=== PATIENT | male | born 1940 | race Caucasian/White ===

== ENCOUNTER 2016-08-10 21:47 | Inpatient (IN) ==
--- NOTE | 2016-08-10 22:16 | Emergency Department Note ---
Disposition Clinical Impression: Pneumonia Qualifiers: Pneumonia type: due to unspecified organism Laterality: unspecified laterality Lung location: unspecified part of lung Qualified Code(s): J18.9 - Pneumonia, unspecified organism Disposition: Admitted As Inpatient Condition: Good SOB HPI - General Chief Complaint: ED Shortness of Breath/Dyspnea Stated Complaint: ED Time Seen by Provider: 08/10/16 22:10 Source: patient Limitations: no limitations Nursing Notes Reviewed: Yes Vital Signs Reviewed: Yes - History of Present Illness Patient here for development of shortness of breath and cough that started earlier today. At home temperature of 102. Patient's temperature here of 100.9. Patient states he has had cough is nonproductive in nature. Patient has diffuse wheezing throughout. Patient has a history of COPD, CHF, coronary artery disease. Patient has been using albuterol home with increasing frequency. - Related Data Allergies Allergy/AdvReac Type Severity Reaction Status Date / Time levofloxacin AdvReac Itching Verified 08/10/16 23:51 Review of Systems: CONSTITUTIONAL: Fever No weight loss, weakness or fatigue. HEENT: Eyes: No visual changes. Ears, Nose, Throat: No hearing loss, difficulty talking or unable to swallow. SKIN: No rash or itching. CARDIOVASCULAR: No chest pain, chest pressure or chest discomfort. No palpitations or edema. RESPIRATORY: Shortness of breath cough but no sputum production. GASTROINTESTINAL: No anorexia, nausea, vomiting or diarrhea. No abdominal pain or blood. GENITOURINARY: No burning on urination or hematuria. NEUROLOGICAL: No headache, dizziness, syncope, paralysis, ataxia, numbness or tingling in the extremities. No change in bowel or bladder control. MUSCULOSKELETAL: No muscle pain, back pain, joint pain or stiffness. Past Medical History - Past Medical History Medical history: Reports: CHF, COPD, hyperlipidemia, hypertension, myocardial infarction Psychiatric history: Reports: no psych history - Social History Smoking Status: Former smoker Smokeless Tobacco Status: No Alcohol use: Reports: none Drug use: Reports: none Physical Exam General appearance: NAD, conversant Eyes: anicteric sclerae, moist conjunctivae; PERRL HENT: Atraumatic; oropharynx clear with moist mucous membranes and no mucosal ulcerations Neck: Normal inspection; Trachea midline; FROM, supple Lungs: Diffuse wheezing throughout CV: RRR, no MRGs Abdomen: Soft, non-tender; no rebound or gaurding Extremities: No peripheral edema or extremity lymphadenopathy Skin: Normal temperature; no rash, ulcers or lesions Psych: Appropriate mood and affect Neuro: alert and oriented to person, place and time - General Limitations: no limitations General appearance: alert Course - Reevaluation(s) Reevaluation #1: Patient with mild improvement after duo nebs. Patient has a fever as well as concern for radiographic pneumonia. Blood cultures will be obtained and Levaquin will be started. Patient will be admitted to the hospital service. Patient has allergies to Levaquin. Patient given ceftriaxone and azithromycin instead. - Consultations Consultation #1: Discussed with Dr. Clarke. Pt needs lactate and fluids due to sepsis criteria. Limited fluids will be given due to CHF history. Vital Signs Temperature 100.9 F H 08/10/16 21:51 Pulse Rate 98 08/10/16 21:51 Respiratory Rate 16 08/10/16 21:51 Blood Pressure 150/77 08/10/16 21:51 O2 Sat by Pulse Oximetry 90 08/10/16 21:51 Temperature 100.9 F H 08/10/16 21:51 Pulse Rate 98 08/10/16 21:51 Respiratory Rate 24 08/10/16 22:29 Blood Pressure 150/77 08/10/16 21:51 O2 Sat by Pulse Oximetry 98 08/10/16 22:34 Oxygen Delivery Oxygen Delivery Room Air Shortness of Breath/Dyspnea - Medical Records Medical records reviewed: Yes I reviewed the patient's medical records. - Lab Data Lab results reviewed: Yes I reviewed the patient's lab results. Result diagrams: 08/10/16 22:23 08/10/16 22:23 Lab Results 08/10/16 08/10/16 08/10/16 Range/Units 22:23 22:23 22:23 WBC 14.7 H (4.3-11.1) K/mcL RBC 4.02 L (4.19-5.50) M/mcL Hgb 11.4 L (12.9-16.9) g/dL Hct 35.8 L (37.5-50.1) % MCV 89.1 (83.0-100.0) fL MCH 28.4 (28.0-33.3) pg MCHC 31.8 (31.6-35.5) g/dL RDW 19.5 H (11.5-14.5) % Plt Count 197 (140-400) K/mcL MPV 9.6 (9.4-12.4) fL Immature Gran % 0.5 (0-4) % Seg Neutrophils % 75.4 % Lymphocytes % 9.0 % Monocytes % 7.2 % Eosinophils % 7.6 % Basophils % 0.3 % Neutrophils # 11.1 H (1.6-8.9) K/mcL Lymphocytes # 1.3 (0.6-4.6) K/mcL Monocytes # 1.1 (0.0-1.3) K/mcL Eosinophils # 1.1 H (0.0-0.6) K/mcL Basophils # 0.1 (0.0-0.2) K/mcL PT 13.0 H (9.4-12.1) Seconds INR 1.2 Sodium 137 (136-145) mEq/L Potassium 4.3 (3.5-4.5) mEq/L Chloride 103 (98-109) mEq/L Carbon Dioxide 25 (19-29) mEq/L BUN 28 H (8-26) mg/dL Creatinine 1.26 H (0.72-1.25) mg/dL Est GFR ( Amer) > 60 (> 60) Est GFR (Non-Af Amer) 56 L (> 60) BUN/Creatinine Ratio 22 (6-26) Glucose 134 H (70-99) mg/dL Calculated Osmolality 291 (280-300) Calcium 9.6 (8.6-10.8) mg/dL Troponin I (0-0.03) ng/mL B-Natriuretic Peptide (0-100) pg/mL 08/10/16 08/10/16 Range/Units 22:23 22:23 WBC (4.3-11.1) K/mcL RBC (4.19-5.50) M/mcL Hgb (12.9-16.9) g/dL Hct (37.5-50.1) % MCV (83.0-100.0) fL MCH (28.0-33.3) pg MCHC (31.6-35.5) g/dL RDW (11.5-14.5) % Plt Count (140-400) K/mcL MPV (9.4-12.4) fL Immature Gran % (0-4) % Seg Neutrophils % % Lymphocytes % % Monocytes % % Eosinophils % % Basophils % % Neutrophils # (1.6-8.9) K/mcL Lymphocytes # (0.6-4.6) K/mcL Monocytes # (0.0-1.3) K/mcL Eosinophils # (0.0-0.6) K/mcL Basophils # (0.0-0.2) K/mcL PT (9.4-12.1) Seconds INR Sodium (136-145) mEq/L Potassium (3.5-4.5) mEq/L Chloride (98-109) mEq/L Carbon Dioxide (19-29) mEq/L BUN (8-26) mg/dL Creatinine (0.72-1.25) mg/dL Est GFR ( Amer) (> 60) Est GFR (Non-Af Amer) (> 60) BUN/Creatinine Ratio (6-26) Glucose (70-99) mg/dL Calculated Osmolality (280-300) Calcium (8.6-10.8) mg/dL Troponin I 0.01 (0-0.03) ng/mL B-Natriuretic Peptide 78 (0-100) pg/mL - Radiology Data Radiology results reviewed: Yes I reviewed the patient's radiology results. - EKG Data EKG attestation: Yes I reviewed and interpreted this EKG. EKG results narrative: EKG shows sinus rhythm with ventricular rate of 92. RI interval 173. QRS 89. QTC 363. No significant ST elevations or depressions. Attestation Statement - Attestation Attestation: I, Iban Davis MD, personally evaluated this patient and discussed their management with the resident physician. I reviewed the resident's note and agree with the documented findings, medical decision making, and plan of care. 76-year-old male presents to the emergency department with a complaint of acute increased shortness of breath which started about 6 PM this evening. Some pleuritic left lower chest pain with coughing or deep breathing. No increased cough. No sputum production. He did have a fever which just started this evening. reports at home his temperature was 102.2 just prior to coming to the emergency department. He does have home oxygen which she uses as needed. He used the oxygen at home tonight but it did not seem to be helping. On examination patient is a well-developed well-nourished elderly male in no acute distress. He is alert and oriented 3. There is no cyanosis or diaphoresis. Breath sounds are decreased bilaterally with diffuse bilateral expiratory wheezes. Heart regular rate and rhythm. Abdomen soft and nontender with normal bowel sounds. Labs reviewed. Chest x-ray shows a right lower lobe consolidation. EKG shows normal sinus rhythm with no acute changes. The hospitalist, Dr. Waddell, was consulted and accepted admission of the patient.
[2016-08-10] MEDS ORDERED: methylPREDNISolone 125 MG/2 ML VIAL IVP ONE (22:19)
[2016-08-10] MEDS ORDERED: Ipratropium/Albuterol Neb 3 ML IH ONE (22:19)
[2016-08-10 22:30] LABS: Basophils # 0.1 K/mcL (0.0-0.2); Basophils % 0.3 %; Eosinophils # 1.1 K/mcL (0.0-0.6); Eosinophils % 7.6 %; Hematocrit 35.8 % (37.5-50.1); Hemoglobin 11.4 g/dL (12.9-16.9); Immature Granulocytes % 0.5 % (0-4); Lymphocytes # 1.3 K/mcL (0.6-4.6); Mean Corpuscular HGB Conc 31.8 g/dL (31.6-35.5); Mean Corpuscular Hemoglobin 28.4 pg (28.0-33.3); Mean Corpuscular Volume 89.1 fL (83.0-100.0); Mean Platelet Volume 9.6 fL (9.4-12.4); Monocytes # 1.1 K/mcL (0.0-1.3); Monocytes % 7.2 %; Neutrophils # 11.1 K/mcL (1.6-8.9); Platelet Count 197 K/mcL (140-400); Red Blood Count 4.02 M/mcL (4.19-5.50); Red Cell Distribution Width 19.5 % (11.5-14.5); Segmented Neutrophils % 75.4 %
[2016-08-10 22:35] LABS: INR 1.2
[2016-08-10 22:42] LABS: BUN/Creatinine Ratio 22 (6-26); Blood Urea Nitrogen 28 mg/dL (8-26); Calcium 9.6 mg/dL (8.6-10.8); Carbon Dioxide 25 mEq/L (19-29); Chloride 103 mEq/L (98-109); Glucose 134 mg/dL (70-99); Osmolality,Calculated 291 (280-300); Potassium 4.3 mEq/L (3.5-4.5); Sodium 137 mEq/L (136-145); eGFR For African Americans > 60 (> 60); eGFR For Non-African Americans 56 (> 60)
[2016-08-10] MEDS ORDERED: Levofloxacin 750 MG/150 ML 750 MG/150 ML BAG IVPB ONE (23:34)
[2016-08-10] MEDS ORDERED: 0.9 % Sodium Chloride 500 ML IVC ONE (23:38)
[2016-08-10] MEDS ORDERED: Azithromycin 500 MG in D5% in Water 250 ML IVPB ONE (23:52)
--- NOTE | 2016-08-11 04:37 | Internal Med History&Physical ---
Date of Encounter: 08/11/16 Time of Encounter: 04:37 Assessment and Plan (1) Pneumonia Current visit: Yes Status: Acute Treat for community acquired pneumonia - with ceftriaxone and azithromycin. Qualifiers: Pneumonia type: due to unspecified organism Laterality: right Lung location: lower lobe of lung Qualified Code(s): J18.1 - Lobar pneumonia, unspecified organism (2) Sepsis Current visit: Yes Status: Acute Due to pneumonia. Treat with antibiotics and IV fluids. Qualifiers: Sepsis type: sepsis due to unspecified organism Qualified Code(s): A41.9 - Sepsis, unspecified organism (3) COPD exacerbation Current visit: Yes Status: Acute Treat with bronchodilators and prednisone. (4) CAD (coronary artery disease) Current visit: Yes Status: Acute Continue home medications Qualifiers: Coronary Disease-Associated Artery/Lesion type: [place] artery [place] vs. transplanted heart: [place] heart Associated angina: without angina Qualified Code(s): I25.10 - Atherosclerotic heart disease of [place] coronary artery without angina pectoris (5) BPH (benign prostatic hyperplasia) Current visit: Yes Status: Acute Continue flomax Qualifiers: Prostatic enlargement morphology: unspecified morphology Lower urinary tract symptom presence: presence of symptoms unspecified Qualified Code(s): N40.0 - Benign prostatic hyperplasia without lower urinary tract symptoms Internal Medicine - H&P: HPI Chief complaint: Shortness of breath Admitted From: Emergency Dept Plans for Post Hospital Care: Home History of present illness: Mr. Kan is a 76 year old male With h/o CHF, COPD, CAD, hypertension, Presents with shortness of breath and cough since yesterday. Cough is non productive. Pt reports wheezing. Reports fever (temp: 102 F at home) and chills. Pt denies chest pain, nausea, vomiting, abdominal pain, dysuria, hematuria, changes in bowel habits. He was evaluated in the ER and was thought to have RLL pneumonia and was given ceftriaxone and azithromycin; was given solu -medrol and duonebs. He is admitted to the hospitalist service for further management. Past Med Surg Social Fam HX - Past Medical History Medical history: CHF, COPD, hyperlipidemia, hypertension, myocardial infarction Psychiatric history: no psych history - Social History Smoking Status: Former smoker Smokeless Tobacco Status: No Alcohol use: none Drug use: none - Additional Family History Additional family history: Family history reviewed and is noncontributory to current admission Internal Medicine - H&P: Meds Acetaminophen [Tylenol] 650 mg PO QAM PRN 08/11/16 [History] Albuterol Neb [Proventil Neb] 2.5 mg IH Q12H 08/11/16 [History] Albuterol Sulfate [Albuterol Inhaler] 2 puff IH Q6HR PRN 08/11/16 [History] Aspirin [Lo-Dose Aspirin EC] 81 mg PO DAILY 08/11/16 [History] Atorvastatin [Lipitor] 40 mg PO HS 08/11/16 [History] Budesonide/Formoterol 160/4.5 [Symbicort 160/4.5] 2 puff IH BIDR 08/11/16 [ History] Cholecalciferol (D-3) [Vitamin D] 1,000 unit PO DAILY 08/11/16 [History] Isosorbide MONOnitrate (24 HR) [Imdur] 30 mg PO DAILY 08/11/16 [History] Metoprolol Tartrate [Lopressor] 50 mg PO BID 08/11/16 [History] Montelukast [Singulair] 10 mg PO DAILY 08/11/16 [History] Nitroglycerin [Nitrostat] 0.4 mg SL AD PRN 08/11/16 [History] Omeprazole [PriLOSEC] 20 mg PO DAILY 08/11/16 [History] Oxygen 2 l NS HS 08/11/16 [History] Ranolazine [Ranexa] 500 mg PO BID 08/11/16 [History] Tamsulosin [Flomax] 0.4 mg PO DAILY 08/11/16 [History] Tiotropium [Spiriva] 1 cap IH DAILY 08/11/16 [History] Vit C/E/Zn/Coppr/Lutein/Zeaxan [Preservision Areds 2 Softgel] 1 cap PO DAILY [History] Zinc Acetate [Galzin] 50 mg PO DAILY 08/11/16 [History] Allergies levofloxacin Adverse Reaction (Verified 08/10/16 23:51) Itching All Systems PM: A 10-system review of systems was performed and is negative for pertinent findings except as documented above in the HPI. - Constitutional Vitals: Temp Pulse Resp BP Pulse Ox 100.9 F H 88 20 138/70 93 08/10/16 21:51 08/11/16 01:10 08/11/16 01:10 08/11/16 01:10 08/11/16 01:10 Exam: General: Not in acute distress at the time of my evaluation HEENT: Oral mucosa is moist. No conjunctival palor or scleral icterus Neck: No obvious neck swellings Lungs: B/L occasional wheeze present Cardiac: Regular rate and rhythm. No significant murmurs Abdomen: Soft, non tender. Bowel sounds present Genitourinary: No ford catheter Neurological: Alert and oriented. No gross localizing deficits Psych: Not aggressive or agitated Extremities: no significant leg edema Skin: No generalized rash Internal Med - H&P Results - Labs CBC & Chem 7: 08/11/16 05:03 08/11/16 06:34 - EKG Data -: EKG Interpreted by Myself EKG shows normal: sinus rhythm Rate: normal - Impressions ITS Impressions Chest X-Ray 08/10/16 22:19 IMPRESSION: Mild diffuse interstitial prominence, which is nonspecific and may represent COPD. Minimal right basilar opacities, favor atelectasis over consolidation. Otherwise no acute findings. D/ / Bean Ledbetter MD / Bean Ledbetter MD Interpreting Provider: Bean Ledbetter MD
[2016-08-11] MEDS ORDERED: Acetaminophen 325 MG TABLET PO PRN (04:39)
[2016-08-11] MEDS ORDERED: Naloxone 0.4 MG/ML INJ IVP PRN (04:39)
[2016-08-11] MEDS ORDERED: Albuterol 2.5 MG/3 ML NEBULIZER IH PRN (04:52)
[2016-08-11 05:13] LABS: Basophils % 0.1 %; Eosinophils % 0.1 %; Hematocrit 35.7 % (37.5-50.1); Hemoglobin 11.4 g/dL (12.9-16.9); Immature Granulocytes % 0.6 % (0-4); Lymphocytes # 0.7 K/mcL (0.6-4.6); Lymphocytes % 4.7 %; Mean Corpuscular HGB Conc 31.9 g/dL (31.6-35.5); Mean Corpuscular Hemoglobin 28.6 pg (28.0-33.3); Mean Corpuscular Volume 89.7 fL (83.0-100.0); Monocytes # 0.4 K/mcL (0.0-1.3); Monocytes % 2.5 %; Neutrophils # 14.4 K/mcL (1.6-8.9); Platelet Count 177 K/mcL (140-400); Red Blood Count 3.98 M/mcL (4.19-5.50); Red Cell Distribution Width 19.5 % (11.5-14.5)
[2016-08-11 05:30] LABS: Bilirubin,Urine Negative (Negative); Blood,Urine Trace (Negative); Clarity,Urine Clear (Clear); Color,Urine Yellow (Yellow); Glucose,Urine (UA) Normal (Normal); Ketones,Urine Negative (Negative); Leukocyte Esterase,Urine Trace (Negative); Nitrite,Urine Negative (Negative); Protein,Urine Negative (Neg-Trace); Specific Gravity,Urine 1.013 (1.010-1.025); Urobilinogen,Urine Normal (Normal)
[2016-08-11 05:32] LABS: Bacteria,Urine None Seen per hpf (None-Few); Hyaline Casts,Urine None Seen per lpf (None-Few); RBC,Urine 0-3 per hpf (0-3); Squamous Epithelial Cell,Urine Many per lpf (None-Few)
[2016-08-11] MEDS: Ipratropium/Albuterol Neb 3 ML IH SCH ×4 (06:29→22:36)
[2016-08-11 07:00] LABS: BUN/Creatinine Ratio 22 (6-26); Blood Urea Nitrogen 25 mg/dL (8-26); C-Reactive Protein 77 mg/L (Less than 5); Calcium 9.4 mg/dL (8.6-10.8); Carbon Dioxide 22 mEq/L (19-29); Chloride 107 mEq/L (98-109); Glucose 160 mg/dL (70-99); Magnesium 1.9 mg/dL (1.6-2.6); Osmolality,Calculated 296 (280-300); Potassium 4.3 mEq/L (3.5-4.5); Sodium 139 mEq/L (136-145); eGFR For African Americans > 60 (> 60); eGFR For Non-African Americans > 60 (> 60)
[2016-08-11] MEDS ORDERED: predniSONE 10 MG TABLET PO SCH (09:00)
--- NOTE | 2016-08-11 09:48 | Event Note ---
<Gerardo Friedman - Last Filed: 08/11/16 09:42> Date of Encounter: 08/11/16 Time of Encounter: 09:42 Patient seen and examined at bedside. Patient admitted early this morning for shortness of breath and cough as well as fevers and chills. Patient states that he feels slightly better now. Patient reports multiple admissions for pneumonia in the past year, most recently was beginning of June at the [facility]. Physical exam: Afebrile at this time, MAXIMUM TEMPERATURE of 100.9, pulse 79, respiration 16, blood pressure 141/72, pulse oximetry 96% on 2 L. Heart regular rate and rhythm, no murmurs, rubs, gallops. Lungs diminished bilaterally with scattered end expiratory wheezes, faint rhonchi in right lower base Assessment and plan: #1: Healthcare associated pneumonia - patient had recent hospital admission so we will expand his antibiotics to cover for MRSA and Pseudomonas. Patient reports Levaquin allergy but states that it just causes a little bit of itching and he could take it if he needed to. We will cover with vancomycin, Zosyn, ciprofloxacin. #2: Acute exacerbation of COPD - patient has underlying COPD and given his shortness of breath, cough with sputum production we will treat the patient is a COPD exacerbation. Exacerbation likely secondary to pneumonia as discussed above. Antibiotics as above, steroids, scheduled bronchodilators. <Wally Murray - Last Filed: 08/11/16 17:19> Date of Encounter: 08/11/16 I examined this patient and my medical decision-making was reviewed with the GLASS BLOWER/PA/Advanced Practice Nurse/Resident Physician. I agree with the documented findings, disposition and treatment plan as described except to the extent set forth below. need CT abd renal stone protocol records from [facility] about recent cath
[2016-08-11] MEDS ORDERED: Nitroglycerin 0.4 MG TAB.SUBL SL PRN (09:50)
[2016-08-11] MEDS: Lactobacillus 1 EACH CAP.SPRINK PO SCH ×2 (09:51→21:56)
[2016-08-11] MEDS: *HR* Heparin 5,000 UNIT/ML VIAL SQ SCH ×3 (09:51→23:39)
[2016-08-11] MEDS: predniSONE 20 MG TABLET PO SCH (09:52)
[2016-08-11] MEDS: Vancomycin 1,500 MG in D5% in Water 250 ML IVPB SCH ×2 (09:52→21:29)
[2016-08-11] MEDS: Isosorbide MONOnitrate (24 HR) 30 MG TAB.ER.24H PO SCH (10:45)
[2016-08-11] MEDS: Ranolazine 500 MG TAB.ER.12H PO SCH ×2 (10:45→21:28)
[2016-08-11] MEDS: Aspirin Enteric Coated 81 MG Tablet PO SCH (10:45)
[2016-08-11] MEDS: Cholecalciferol (D-3) 1,000 UNIT TABLET PO SCH (10:45)
[2016-08-11] MEDS: Budesonide/Formoterol 160/4.5 MDI IH SCH ×4 (11:33→22:42)
--- NOTE | 2016-08-11 13:42 | Electrocardiograph Report ---
[place] [id number] Test Date: 2016-08-10 Pat Name: Sunny Kan Department: 105 Room: 2N1 Gender: M Director Home: [facility] : 1940 Requested By: Deshawn Alejo Order Number: [id number] Reading MD: Job Preciado MD Measurements Intervals [place] Rate: 92 P: 62 GA: 173 QRS: 55 QRSD: 89 T: 50 QT: 313 QTc: 363 Interpretive Statements SINUS RHYTHM BASELINE ARTIFACT Electronically Signed On 08-11-2016 13:41:20 EDT by Job Preciado MD
[2016-08-11] MEDS: Piperacillin/Tazobactam 3.375 GM in D5% in Water (Mini-Bag+) 100 ML IVPB SCH (18:14)
[2016-08-11] MEDS ORDERED: Azithromycin 250 MG TABLET PO SCH (23:00)
[2016-08-12] MEDS: Piperacillin/Tazobactam 3.375 GM in D5% in Water (Mini-Bag+) 100 ML IVPB SCH ×4 (00:38→23:52)
[2016-08-12] MEDS: Ipratropium/Albuterol Neb 3 ML IH SCH ×4 (04:50→22:20)
[2016-08-12 04:58] LABS: Basophils % 0.1 %; Eosinophils % 0.1 %; Hematocrit 31.7 % (37.5-50.1); Hemoglobin 10.3 g/dL (12.9-16.9); Immature Granulocytes % 0.5 % (0-4); Lymphocytes # 1.3 K/mcL (0.6-4.6); Lymphocytes % 9.1 %; Mean Corpuscular HGB Conc 32.5 g/dL (31.6-35.5); Mean Corpuscular Hemoglobin 29.2 pg (28.0-33.3); Mean Corpuscular Volume 89.8 fL (83.0-100.0); Mean Platelet Volume 10.7 fL (9.4-12.4); Monocytes # 1.1 K/mcL (0.0-1.3); Monocytes % 7.6 %; Neutrophils # 12.1 K/mcL (1.6-8.9); Platelet Count 174 K/mcL (140-400); Red Blood Count 3.53 M/mcL (4.19-5.50); Red Cell Distribution Width 19.4 % (11.5-14.5); Segmented Neutrophils % 82.6 %
[2016-08-12 05:13] LABS: BUN/Creatinine Ratio 19 (6-26); Blood Urea Nitrogen 21 mg/dL (8-26); Calcium 9.2 mg/dL (8.6-10.8); Carbon Dioxide 23 mEq/L (19-29); Chloride 108 mEq/L (98-109); Glucose 155 mg/dL (70-99); Magnesium 1.7 mg/dL (1.6-2.6); Osmolality,Calculated 296 (280-300); Potassium 4.2 mEq/L (3.5-4.5); Sodium 140 mEq/L (136-145); eGFR For African Americans > 60 (> 60); eGFR For Non-African Americans > 60 (> 60)
[2016-08-12] MEDS: Ranolazine 500 MG TAB.ER.12H PO SCH ×2 (09:01→21:09)
[2016-08-12] MEDS: predniSONE 20 MG TABLET PO SCH (09:01)
[2016-08-12] MEDS: Aspirin Enteric Coated 81 MG Tablet PO SCH (09:01)
[2016-08-12] MEDS: Lactobacillus 1 EACH CAP.SPRINK PO SCH ×2 (09:01→21:09)
[2016-08-12] MEDS: Isosorbide MONOnitrate (24 HR) 30 MG TAB.ER.24H PO SCH (09:01)
[2016-08-12] MEDS: *HR* Heparin 5,000 UNIT/ML VIAL SQ SCH ×3 (09:04→23:52)
--- NOTE | 2016-08-12 09:11 | Internal Med Progress Note ---
<Gerardo Friedman - Last Filed: 08/12/16 09:08> Date of Encounter: 08/12/16 Time of Encounter: 09:09 - Assessment and plan (1) Sepsis Current Visit: Yes Status: Acute Assessment and plan: Due to pneumonia with possible UTI. Patient presented with a heart rate greater than 90 and temperature of 100.9 Fahrenheit. This has resolved at this time. Blood cultures are pending, lactic acid was negative, patient will receive adequate fluid hydration. Continue antibiotics. Qualifiers: Sepsis type: sepsis due to unspecified organism Qualified Code(s): A41.9 - Sepsis, unspecified organism (2) Pneumonia Current Visit: Yes Status: Acute Assessment and plan: Patient has had recurrent pneumonias and has been treated at several different facilities, most recently at the beginning of June. I am not 100% convinced that the patient has a true pneumonia at this time given recent diagnosis and x- ray findings could be related to resolving pneumonia from several weeks ago. We will treat with broad-spectrum antibiotics that will also cover other sources of infection including urinary tract infection. Qualifiers: Pneumonia type: due to unspecified organism Laterality: right Lung location: lower lobe of lung Qualified Code(s): J18.1 - Lobar pneumonia, unspecified organism (3) COPD exacerbation Current Visit: Yes Status: Acute Assessment and plan: Possibly secondary to pneumonia as discussed above. Continue with steroids, antibiotics, scheduled bronchodilators. (4) Renal calculi Current Visit: Yes Status: Acute Assessment and plan: CT of the abdomen shows multiple renal calculi with one stone in the right ureter that is causing mild hydronephrosis. Patient does report intermittent dysuria. This could be a nevus of the patient's recurrent infections. We will culture urine, if no improvement or worsening symptoms consider urology consult. Patient does report that his had extracorporal shockwave lithotripsy in the past. (5) CAD (coronary artery disease) Current Visit: Yes Status: Acute Assessment and plan: Patient is chest pain-free at this time. Long-standing coronary artery disease with a lesion that has not been fixed could be contributing to the patient's respiratory symptoms. We will obtain records from [place]. Qualifiers: Coronary Disease-Associated Artery/Lesion type: [place] artery [place] vs. transplanted heart: [place] heart Associated angina: without angina Qualified Code(s): I25.10 - Atherosclerotic heart disease of [place] coronary artery without angina pectoris (6) DVT prophylaxis Current Visit: Yes Status: Acute Assessment and plan: Heparin 5000 units subcutaneous 3 times a day. - Subjective Interval history: Patient seen and examined at bedside. Patient states that he feels better today. He states his breathing is improved. Denies cough. - Constitutional Vitals: Temp Pulse Resp BP Pulse Ox 98.1 F 73 16 152/75 95 08/12/16 06:38 08/12/16 06:38 08/12/16 06:38 08/12/16 06:38 08/12/16 06:38 General appearance: Present: A&O X 3, pleasant, no acute distress - Respiratory Respiratory exam: Present: wheezes (Rare, scattered). Absent: rales, respiratory distress, rhonchi, tachypnea - Cardiovascular Cardiovascular exam: Present: RRR. Absent: gallop, rubs, systolic murmur - GI/Abdominal GI/Abdominal exam: Present: normal bowel sounds, soft. Absent: distended, tenderness - Extremities Exam Extremities exam: Present: warm. Absent: pedal edema, tenderness Internal Medicine: Result - Labs CBC & Chem 7: 08/12/16 03:56 08/12/16 03:56 Labs: Short CBC 08/12/16 Range/Units 03:56 WBC 14.7 H (4.3-11.1) K/mcL Hgb 10.3 L (12.9-16.9) g/dL Hct 31.7 L (37.5-50.1) % Plt Count 174 (140-400) K/mcL Neutrophils # 12.1 H (1.6-8.9) K/mcL BMP 08/12/16 03:56 Sodium 140 Potassium 4.2 Chloride 108 Carbon Dioxide 23 BUN 21 Creatinine 1.08 Glucose 155 H Calcium 9.2 - ABG Interpretation ABG results: PT/INR, D-dimer PT 13.0 Seconds (9.4-12.1) H 08/10/16 22:23 - Impressions Impressions Abdomen/Pelvis CT 08/11/16 13:07 IMPRESSION: 1. 4-5 mm obstructing right proximal to mid ureteral calculus resulting in mild hydroureteronephrosis. 2. Bilateral nonobstructing nephrolithiasis. 3. Mild patchy opacities of the right lower lobe base which may represent bronchopneumonia. 4. Indeterminate 1.3 cm left adrenal nodule. With no prior history of cancer this likely represents an adenoma. Consider 12 month follow-up CT abdomen. D/ / 08/11/2016 18:26:18 Rick Eason MD / tan Interpreting Provider: Rick Eason MD Consult Discharge Plan - Plan [facility]errals[facility] Care Provider[facility] - <Wally Murray P - Last Filed: 08/12/16 12:25> Date of Encounter: 08/12/16 - Constitutional Vitals: Temp Pulse Resp BP Pulse Ox 97.9 F 70 16 162/77 96 08/12/16 11:31 08/12/16 11:31 08/12/16 11:31 08/12/16 11:31 08/12/16 11:31 Internal Medicine: Result - Labs CBC & Chem 7: 08/12/16 03:56 08/12/16 03:56 Labs: Short CBC 08/12/16 Range/Units 03:56 WBC 14.7 H (4.3-11.1) K/mcL Hgb 10.3 L (12.9-16.9) g/dL Hct 31.7 L (37.5-50.1) % Plt Count 174 (140-400) K/mcL Neutrophils # 12.1 H (1.6-8.9) K/mcL BMP 08/12/16 03:56 Sodium 140 Potassium 4.2 Chloride 108 Carbon Dioxide 23 BUN 21 Creatinine 1.08 Glucose 155 H Calcium 9.2 - ABG Interpretation ABG results: PT/INR, D-dimer PT 13.0 Seconds (9.4-12.1) H 08/10/16 22:23 - Impressions Impressions Abdomen/Pelvis CT 08/11/16 13:07 IMPRESSION: 1. 4-5 mm obstructing right proximal to mid ureteral calculus resulting in mild hydroureteronephrosis. 2. Bilateral nonobstructing nephrolithiasis. 3. Mild patchy opacities of the right lower lobe base which may represent bronchopneumonia. 4. Indeterminate 1.3 cm left adrenal nodule. With no prior history of cancer this likely represents an adenoma. Consider 12 month follow-up CT abdomen. D/ / 08/11/2016 18:26:18 Rick Eason MD / tan Interpreting Provider: Rick Eason MD - Attending Attestation I examined this patient and my medical decision-making was reviewed with the DISTRICT ADMINISTRATIVE ASSISTANT/PA/Advanced Practice Nurse/Resident Physician. I agree with the documented findings, disposition and treatment plan as described except to the extent set forth below. urology input today please need records from [place] please
[2016-08-12] MEDS: Cholecalciferol (D-3) 1,000 UNIT TABLET PO SCH (09:18)
[2016-08-12] MEDS: Budesonide/Formoterol 160/4.5 MDI IH SCH ×2 (10:36→22:20)
--- NOTE | 2016-08-12 16:34 | Urology - Consult Note ---
Date of Encounter: 08/12/16 Time of Encounter: 16:32 - Assessment and Plan (1) Urinary tract infection Current Visit: Yes Status: Acute Assessment and plan: Continue broad-spectrum antibiotics this time. Qualifiers: Urinary tract infection type: acute cystitis Hematuria presence: without hematuria Qualified Code(s): N30.00 - Acute cystitis without hematuria (2) Renal calculi Current Visit: Yes Status: Acute Assessment and plan: We will plan on taking the patient to the operating room tomorrow for right ureteroscopic stone extraction. If gross pus is seen then we will just placed ureteral stent. Urology CN:HPI Consult date: 08/12/16 Reason for consult Urology: Hydronephrosis Requesting physician: Wally Murray History of present illness: Sunny is a 76-year-old male with a history of admission secondary to possible pneumonia with COPD exacerbation. [facility] that he had a obstructing right proximal ureteral stone with UTI. Patient was given antibiotics and was told that he would be referred to urology this never happened. Patient does have a known history of kidney stones and underwent ESWL in the past. Patient was admitted with a fever and leukocytosis. Past Med Surg Social Fam HX - Past Medical History Medical history: CHF, COPD, hyperlipidemia, hypertension, myocardial infarction Psychiatric history: no psych history - Social History Smoking Status: Former smoker Smokeless Tobacco Status: No Alcohol use: none Drug use: none Medications and Allergies Acetaminophen [Tylenol] 650 mg PO QAM PRN 08/11/16 [History] Albuterol Neb [Proventil Neb] 2.5 mg IH Q12H 08/11/16 [History] Albuterol Sulfate [Albuterol Inhaler] 2 puff IH Q6HR PRN 08/11/16 [History] Aspirin [Lo-Dose Aspirin EC] 81 mg PO DAILY 08/11/16 [History] Atorvastatin [Lipitor] 40 mg PO HS 08/11/16 [History] Budesonide/Formoterol 160/4.5 [Symbicort 160/4.5] 2 puff IH BIDR 08/11/16 [ History] Cholecalciferol (D-3) [Vitamin D] 1,000 unit PO DAILY 08/11/16 [History] Isosorbide MONOnitrate (24 HR) [Imdur] 30 mg PO DAILY 08/11/16 [History] Metoprolol Tartrate [Lopressor] 50 mg PO BID 08/11/16 [History] Montelukast [Singulair] 10 mg PO DAILY 08/11/16 [History] Nitroglycerin [Nitrostat] 0.4 mg SL AD PRN 08/11/16 [History] Omeprazole [PriLOSEC] 20 mg PO DAILY 08/11/16 [History] Oxygen 2 l NS HS 08/11/16 [History] Ranolazine [Ranexa] 500 mg PO BID 08/11/16 [History] Tamsulosin [Flomax] 0.4 mg PO DAILY 08/11/16 [History] Tiotropium [Spiriva] 1 cap IH DAILY 08/11/16 [History] Vit C/E/Zn/Coppr/Lutein/Zeaxan [Preservision Areds 2 Softgel] 1 cap PO DAILY [History] Zinc Acetate [Galzin] 50 mg PO DAILY 08/11/16 [History] Allergies levofloxacin Adverse Reaction (Verified 08/10/16 23:51) Itching Review of Systems - Constitutional fever(s) - EENT Nose, mouth and throat: no dizziness - Cardiovascular no chest pain - Respiratory no cough - Gastrointestinal abdominal pain - Musculoskeletal back pain (Pain located in lower mid back) - Integumentary no erythema - Neurological no confusion - Psychiatric no anxiety - Hematologic/Lymphatic no easy bleeding Exam Initial Vital Signs Temp Pulse Resp BP Pulse Ox 100.9 F H 98 16 150/77 90 08/10/16 21:51 08/10/16 21:51 08/10/16 21:51 08/10/16 21:51 08/10/16 21:51 - General physical appearance Present: well developed - Eyes Present: PERRL - ENT Present: normal nares - Cardiovascular Cardiovascular exam IM: RRR - Abdomen Abdomen: Present: soft - Integumentary Present: no rash - Neurologic Present: normal coordination - Musculoskeletal Present: normal gait Urology Results - Labs 08/12/16 03:56 08/12/16 03:56 Abnormal lab results WBC 14.7 K/mcL (4.3-11.1) H 08/12/16 03:56 RBC 3.53 M/mcL (4.19-5.50) L 08/12/16 03:56 Hgb 10.3 g/dL (12.9-16.9) L 08/12/16 03:56 Hct 31.7 % (37.5-50.1) L 08/12/16 03:56 RDW 19.4 % (11.5-14.5) H 08/12/16 03:56 Neutrophils # 12.1 K/mcL (1.6-8.9) H 08/12/16 03:56 PT 13.0 Seconds (9.4-12.1) H 08/10/16 22:23 Glucose 155 mg/dL (70-99) H 08/12/16 03:56 C-Reactive Protein 77 mg/L (Less than 5) H 08/11/16 06:34 Urine Blood Trace (Negative) H 08/11/16 05:20 Ur Leukocyte Esterase Trace (Negative) H 08/11/16 05:20 Urine Microscopic WBC 5-15 per hpf (0-3) H 08/11/16 05:20 Ur Squamous Epith Cells Many per lpf (None-Few) H 08/11/16 05:20 Ur Culture Indicated? YES (NO) A 08/11/16 05:20 Diabetes panel 08/12/16 Range/Units 03:56 Sodium 140 (136-145) mEq/L Potassium 4.2 (3.5-4.5) mEq/L Chloride 108 (98-109) mEq/L Carbon Dioxide 23 (19-29) mEq/L BUN 21 (8-26) mg/dL Creatinine 1.08 (0.72-1.25) mg/dL Glucose 155 H (70-99) mg/dL Calcium 9.2 (8.6-10.8) mg/dL Calcium panel 08/12/16 Range/Units 03:56 Calcium 9.2 (8.6-10.8) mg/dL Pituitary panel 08/12/16 Range/Units 03:56 Sodium 140 (136-145) mEq/L Potassium 4.2 (3.5-4.5) mEq/L Chloride 108 (98-109) mEq/L Carbon Dioxide 23 (19-29) mEq/L BUN 21 (8-26) mg/dL Creatinine 1.08 (0.72-1.25) mg/dL Glucose 155 H (70-99) mg/dL Calcium 9.2 (8.6-10.8) mg/dL Adrenal panel 08/12/16 Range/Units 03:56 Sodium 140 (136-145) mEq/L Potassium 4.2 (3.5-4.5) mEq/L Chloride 108 (98-109) mEq/L Carbon Dioxide 23 (19-29) mEq/L BUN 21 (8-26) mg/dL Creatinine 1.08 (0.72-1.25) mg/dL Glucose 155 H (70-99) mg/dL Calcium 9.2 (8.6-10.8) mg/dL All other labs normal. - Imaging CT scan - abdomen: image reviewed CT scan - pelvis: image reviewed Consult Discharge Plan - Plan [facility]errals: [facility] [Primary Care Provider] -
--- NOTE | 2016-08-12 19:47 | Anesthesia Evaluation PreOp ---
Date of Encounter: 08/12/16 Time of Encounter: 19:58 - Past History Planned Operation: R-ureteroscopic stone extraction Cardiac History: ID (NSTEMI - 05/2016 evaluated at [facility] [per Pt]) , HTN (maintained on Imdur, Ranexa, Lopressor), Hyperlipidemia (maintained on Atorvastatin), Cardiac Stent (NO stents - "One artery is 100% blocked and has collaterals - they couldn't get a stent in it" per Pt. Maintained on ASA and other CV meds), Other Pulmonary History: Former smoker (quit 2015), Pack/yr (1ppd x 50+ yrs), COPD ( Exacerbation this hospitalization; maintained on Spiriva, Symbicort, Albuterol, Proventil Home O2 qHS), Other (Admitted 08/11/16 Pneumonia vs. COPD exacerbation. 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 Other Medical History: Renal (Hx of kidney stones/UTIs), Other (BPH - maintained on Flomax) Anesthesia History: No Prior Anesthetic Complications, Past Anesthesia (ESWL, LLL lobectomy vs bullectomy 10/2015, Back surgery, Ing Hernia Repair, T&A) Alcohol Use: none Drug use: none Medications and Allergies Acetaminophen [Tylenol] 650 mg PO QAM PRN 08/11/16 [History] Albuterol Neb [Proventil Neb] 2.5 mg IH Q12H 08/11/16 [History] Albuterol Sulfate [Albuterol Inhaler] 2 puff IH Q6HR PRN 08/11/16 [History] Aspirin [Lo-Dose Aspirin EC] 81 mg PO DAILY 08/11/16 [History] Atorvastatin [Lipitor] 40 mg PO HS 08/11/16 [History] Budesonide/Formoterol 160/4.5 [Symbicort 160/4.5] 2 puff IH BIDR 08/11/16 [ History] Cholecalciferol (D-3) [Vitamin D] 1,000 unit PO DAILY 08/11/16 [History] Isosorbide MONOnitrate (24 HR) [Imdur] 30 mg PO DAILY 08/11/16 [History] Metoprolol Tartrate [Lopressor] 50 mg PO BID 08/11/16 [History] Montelukast [Singulair] 10 mg PO DAILY 08/11/16 [History] Nitroglycerin [Nitrostat] 0.4 mg SL AD PRN 08/11/16 [History] Omeprazole [PriLOSEC] 20 mg PO DAILY 08/11/16 [History] Oxygen 2 l NS HS 08/11/16 [History] Ranolazine [Ranexa] 500 mg PO BID 08/11/16 [History] Tamsulosin [Flomax] 0.4 mg PO DAILY 08/11/16 [History] Tiotropium [Spiriva] 1 cap IH DAILY 08/11/16 [History] Vit C/E/Zn/Coppr/Lutein/Zeaxan [Preservision Areds 2 Softgel] 1 cap PO DAILY [History] Zinc Acetate [Galzin] 50 mg PO DAILY 08/11/16 [History] Allergies levofloxacin Adverse Reaction (Verified 08/10/16 23:51) Itching - Meds/Allergy Pre-op Review Medications Reviewed: Yes Allergies Reviewed: Yes Beta Blockers on Current Med List: Yes (Metoprolol) If Beta Blockers taken, Date/Time (Last Dose taken): 08/12/16 @ 2109 Anesthesia Results - Labs 08/12/16 03:56 08/12/16 03:56 Laboratory Results Impressions Chest X-Ray 08/10/16 22:19 IMPRESSION: Mild diffuse interstitial prominence, which is nonspecific and may represent COPD. Minimal right basilar opacities, favor atelectasis over consolidation. Otherwise no acute findings. D/ / Bean Ledbetter MD / Bean Ledbetter MD Interpreting Provider: Bean Ledbetter MD Abdomen/Pelvis CT 08/11/16 13:07 IMPRESSION: 1. 4-5 mm obstructing right proximal to mid ureteral calculus resulting in mild hydroureteronephrosis. 2. Bilateral nonobstructing nephrolithiasis. 3. Mild patchy opacities of the right lower lobe base which may represent bronchopneumonia. 4. Indeterminate 1.3 cm left adrenal nodule. With no prior history of cancer this likely represents an adenoma. Consider 12 month follow-up CT abdomen. D/ / 08/11/2016 18:26:18 Rick Eason MD / tan Interpreting Provider: Rick Eason MD - Imaging EKG: image reviewed (92bpm SR) Anesthesia Exam Vital Signs Temp Pulse Resp BP Pulse Ox 08/12/16 19:39 97.8 F 81 18 136/67 97 08/12/16 16:38 16 93 08/12/16 15:37 97.8 F 16 16 154/63 93 08/12/16 11:31 97.9 F 70 16 162/77 96 08/12/16 10:36 16 95 08/12/16 06:38 98.1 F 73 16 152/75 95 08/12/16 04:52 18 94 08/12/16 04:47 97.7 F 84 18 141/69 96 08/12/16 00:07 97.8 F 84 18 134/63 92 08/11/16 22:39 18 94 Intake and Output 08/12/16 08/12/16 08/12/16 07:59 15:59 23:59 Intake Total 550 / 550 460 / 460 240 / 240 Output Total 575 / 575 Balance -25 / -25 460 / 460 240 / 240 Intake: IV Fluids 500 / 500 100 / 100 Cipro Premix 400 MG/200 400 / 400 ML 400 mg In 200 ml @ 200 mls/hr IVPB Q12HR [facility] Rx #:[id number] Zosyn 3.375 GM In 100 / 100 100 / 100 Dextrose 5% (Minibag+) 100 ML 100 ML @ 25 mls/hr IVPB Q8HR [facility] Rx#: [id number] Oral 50 / 50 360 / 360 240 / 240 Output: Urine 575 / 575 Other: Meal Lunch Dinner Percent of Meal Consumed 100% 100% # Voids 0 3 Weight 94.6 kg Patient Weight 08/12/16 23:59 Weight 94.6 kg Height: 5'9" Weight: 208# BMI = 31 - HEENT Pupil (Motor): Pupils equal, EOMI Mallampati: III Teeth: Edentulous Denture Type: Upper: Complete, Lower: Complete Oral Opening: Greater than 3 - CYTOLOGY TEACHER LOC: Oriented CYTOLOGY TEACHER Motor: Normal RUE, Normal LUE, Normal RLE, Normal LLE, Normal Face CYTOLOGY TEACHER Sensory: Normal: RUE, LUE, RLE, LLE, Face - Cardiac Rhythm: Regular Murmur: None - Pulmonary Breath Sounds: bilateral Clear Respiratory Effort: Symmetrical Anesthesia Assess/Plan ASA Score: 3 (COPD, CAD, HTN, Chol, UTI/Hydronephrosis) Modified Debra Scale for Level of Consciousness: Cooperative, oriented, and tranquil Anesthetic Plan: General Monitoring Plan: Standard Monitors Recovery Plan: PACU Anes Supervising Prov Stmt: PT seen/evaluated, R&B discussed, questions answered and consent obtained. Alexandria Hodges MD
[2016-08-12] MEDS ORDERED: Vancomycin 1,500 MG in D5% in Water 250 ML IVPB SCH (21:00)
[2016-08-12] MEDS ORDERED: Vancomycin 2,000 MG in D5% in Water 500 ML IVPB SCH (22:00)
[2016-08-13] MEDS: Ipratropium/Albuterol Neb 3 ML IH SCH ×4 (04:41→22:07)
[2016-08-13 06:30] LABS: Basophils % 0.2 %; Eosinophils # 0.1 K/mcL (0.0-0.6); Eosinophils % 0.7 %; Hematocrit 32.3 % (37.5-50.1); Hemoglobin 10.4 g/dL (12.9-16.9); Lymphocytes # 1.6 K/mcL (0.6-4.6); Lymphocytes % 13.9 %; Mean Corpuscular HGB Conc 32.2 g/dL (31.6-35.5); Mean Corpuscular Hemoglobin 29.1 pg (28.0-33.3); Mean Corpuscular Volume 90.2 fL (83.0-100.0); Mean Platelet Volume 10.5 fL (9.4-12.4); Monocytes % 8.4 %; Neutrophils # 8.5 K/mcL (1.6-8.9); Platelet Count 184 K/mcL (140-400); Red Blood Count 3.58 M/mcL (4.19-5.50); Red Cell Distribution Width 19.4 % (11.5-14.5); Segmented Neutrophils % 75.8 %
[2016-08-13 06:34] LABS: BUN/Creatinine Ratio 22 (6-26); Blood Urea Nitrogen 22 mg/dL (8-26); Carbon Dioxide 26 mEq/L (19-29); Chloride 107 mEq/L (98-109); Glucose 157 mg/dL (70-99); Magnesium 1.8 mg/dL (1.6-2.6); Osmolality,Calculated 293 (280-300); Potassium 3.8 mEq/L (3.5-4.5); Sodium 138 mEq/L (136-145); eGFR For African Americans > 60 (> 60); eGFR For Non-African Americans > 60 (> 60)
[2016-08-13] MEDS ORDERED: *HR* Propofol 200 MG/20 ML VIAL IVP ONE (07:06)
[2016-08-13] MEDS ORDERED: *HR* FentaNYL (PF) 100 MCG/2 ML VIAL ONE (07:06)
[2016-08-13] MEDS ORDERED: *HR* Succinylcholine 200 MG/10 ML VIAL IVP ONE (07:09)
[2016-08-13] MEDS ORDERED: Lidocaine -MPF 2% 2 ML VIAL ONE (07:09)
[2016-08-13] MEDS ORDERED: *HR* Phenylephrine 10 MG/ML VIAL ONE (07:12)
--- NOTE | 2016-08-13 07:14 | Urology Progress Note ---
Date of Encounter: 08/13/16 Time of Encounter: 07:14 - Assessment and Plan (1) Urinary tract infection Current Visit: Yes Status: Acute Qualifiers: Urinary tract infection type: acute cystitis Hematuria presence: without hematuria Qualified Code(s): N30.00 - Acute cystitis without hematuria (2) Renal calculi Current Visit: Yes Status: Acute Assessment and plan: to OR today for stone extraction vs right ureteral stent placement. Progress Note Narrative: patient with right ureteral stone and possible uti. doing well. Objective Initial Vital Signs Temp Pulse Resp BP Pulse Ox 100.9 F H 98 16 150/77 90 08/10/16 21:51 08/10/16 21:51 08/10/16 21:51 08/10/16 21:51 08/10/16 21:51 - General physical appearance Present: well developed - Abdomen Present: soft - Labs 08/13/16 05:40 08/13/16 05:40 Diabetes panel 08/13/16 Range/Units 05:40 Sodium 138 (136-145) mEq/L Potassium 3.8 (3.5-4.5) mEq/L Chloride 107 (98-109) mEq/L Carbon Dioxide 26 (19-29) mEq/L BUN 22 (8-26) mg/dL Creatinine 1.02 (0.72-1.25) mg/dL Glucose 157 H (70-99) mg/dL Calcium 9.0 (8.6-10.8) mg/dL Calcium panel 08/13/16 Range/Units 05:40 Calcium 9.0 (8.6-10.8) mg/dL Pituitary panel 08/13/16 Range/Units 05:40 Sodium 138 (136-145) mEq/L Potassium 3.8 (3.5-4.5) mEq/L Chloride 107 (98-109) mEq/L Carbon Dioxide 26 (19-29) mEq/L BUN 22 (8-26) mg/dL Creatinine 1.02 (0.72-1.25) mg/dL Glucose 157 H (70-99) mg/dL Calcium 9.0 (8.6-10.8) mg/dL Adrenal panel 08/13/16 Range/Units 05:40 Sodium 138 (136-145) mEq/L Potassium 3.8 (3.5-4.5) mEq/L Chloride 107 (98-109) mEq/L Carbon Dioxide 26 (19-29) mEq/L BUN 22 (8-26) mg/dL Creatinine 1.02 (0.72-1.25) mg/dL Glucose 157 H (70-99) mg/dL Calcium 9.0 (8.6-10.8) mg/dL Consult Discharge Plan - Plan [facility]errals: [facility] [Primary Care Provider] -
[2016-08-13] MEDS ORDERED: Dexamethasone 4 MG/ML VIAL ONE (07:58)
[2016-08-13] MEDS ORDERED: Ondansetron 4 MG/2 ML VIAL ONE (07:58)
[2016-08-13] MEDS ORDERED: *HR* HYDROmorphone (PF) 1 MG/ML SYRINGE IVP PRN (08:23)
--- NOTE | 2016-08-13 08:33 | Operative Note ---
Date of procedure: 08/13/16 Pre-op diagnosis: right ureteral stone Post-op diagnosis: same Procedure: Right ureteroscopic laser lithotripsy of stone, right 4.8 x 28 cm ureteral stent placement Anesthesia: GETA Surgeon: Daryl Laws Specimen: Right ureteral stone Condition: stable Disposition: PACU Procedure in Detail: Patient was prepped and draped in normal sterile fashion. Timeout procedure performed. I then inserted the cystoscope into the patient's bladder and cannulated the right ureteral orifice using a sensor wire. I could easily visualize the wire passing the proximal right ureteral stone. I then was able to place 11 x 13 x 46 and a meter access sheath into the right ureter into the right kidney. I placed this just up to the level of the proximal ureteral stone. I then placed the flexible ureteroscope into the access sheath up to the stone. I then used a holmium laser to fragment the stone. All large stone fragments were removed. I surveyed the entire renal collecting system and no further stone seen. I then backloaded a wire through the scope into the right kidney and placed a 4.8 x 28 cm ureteral stent with good curl seen in the right kidney and in the bladder. Patient will follow-up with me in 2-3 weeks for cystoscopic stent removal.
--- NOTE | 2016-08-13 08:51 | Anesthesia Evaluation Post Op ---
Date of Encounter: 08/13/16 Time of Encounter: 08:50 - Vital Signs Vital Signs: Last Vital Signs Temp 97.3 F L 08/13/16 08:35 Pulse 71 08/13/16 08:45 Resp 17 08/13/16 08:45 BP 168/88 08/13/16 08:45 Pulse Ox 97 08/13/16 08:45 - Lungs Lungs: Clear Ascult./Percussion - Airway Airway: Non-obstructed - Cardiovascular Regular Rate - Mental Status Mental Status: Alert & Oriented, Answers Appropriately - Pain Pain Scale: 2 - Nausea Vomiting Nausea Vomiting: Not Present - Hydration Hydration: Tolerates oral liquids - Discharge PostOp Status: Discharge Patient to home
[2016-08-13] MEDS ORDERED: Acetaminophen 325 MG TABLET PO PRN (09:45)
[2016-08-13] MEDS ORDERED: Nitroglycerin 0.4 MG TAB.SUBL SL PRN (09:45)
[2016-08-13] MEDS ORDERED: Albuterol 2.5 MG/3 ML NEBULIZER IH PRN (09:45)
[2016-08-13] MEDS ORDERED: Naloxone 0.4 MG/ML INJ IVP PRN (09:45)
--- NOTE | 2016-08-13 09:59 | Internal Med Progress Note ---
<Gerardo Friedman - Last Filed: 08/13/16 09:57> Date of Encounter: 08/13/16 Time of Encounter: 09:57 - Assessment and plan (1) Sepsis Current Visit: Yes Status: Acute Assessment and plan: Due to pneumonia with possible UTI. Patient presented with a heart rate greater than 90 and temperature of 100.9 Fahrenheit. This has resolved at this time. Blood cultures are no growth to date, lactic acid was negative, patient will receive adequate fluid hydration. Continue antibiotics. Qualifiers: Sepsis type: sepsis due to unspecified organism Qualified Code(s): A41.9 - Sepsis, unspecified organism (2) Pneumonia Current Visit: Yes Status: Acute Assessment and plan: Patient has had recurrent pneumonias and has been treated at several different facilities, most recently at the beginning of June. I am not 100% convinced that the patient has a true pneumonia at this time given recent diagnosis and x- ray findings could be related to resolving pneumonia from several weeks ago. We will treat with broad-spectrum antibiotics that will also cover other sources of infection including urinary tract infection. Qualifiers: Pneumonia type: due to unspecified organism Laterality: right Lung location: lower lobe of lung Qualified Code(s): J18.1 - Lobar pneumonia, unspecified organism (3) COPD exacerbation Current Visit: Yes Status: Acute Assessment and plan: Possibly secondary to pneumonia as discussed above. Continue with steroids, antibiotics, scheduled bronchodilators. (4) Renal calculi Current Visit: Yes Status: Acute Assessment and plan: Patient had a procedure today to extract his obstructing stone and place a ureteral stent. Patient tolerated the procedure well. No evidence of angie infection. Urine culture is negative today. Continue to monitor and continue antibiotics. Appreciate urology's input. (5) CAD (coronary artery disease) Current Visit: Yes Status: Acute Assessment and plan: Patient is chest pain-free at this time. Long-standing coronary artery disease with a lesion that has not been fixed could be contributing to the patient's respiratory symptoms. We will obtain records from [place]. Qualifiers: Coronary Disease-Associated Artery/Lesion type: [place] artery [place] vs. transplanted heart: [place] heart Associated angina: without angina Qualified Code(s): I25.10 - Atherosclerotic heart disease of [place] coronary artery without angina pectoris (6) DVT prophylaxis Current Visit: Yes Status: Acute Assessment and plan: Heparin 5000 units subcutaneous 3 times a day. - Subjective Interval history: Patient seen and examined at bedside. Patient states that he feels pretty good today. He states his breathing is improved. Denies cough. Patient had a procedure to extract any kidney stones morning the patient tolerated the procedure well. He has no complaints post procedure. - Constitutional Vitals: Temp Pulse Resp BP Pulse Ox 97.8 F 74 18 160/78 97 08/13/16 09:05 08/13/16 09:05 08/13/16 09:05 08/13/16 09:05 08/13/16 09:05 General appearance: Present: A&O X 3, pleasant, no acute distress - Respiratory Respiratory exam: Present: CTAB. Absent: rales, rhonchi, wheezes - Cardiovascular Cardiovascular exam: Present: RRR. Absent: gallop, rubs, systolic murmur - GI/Abdominal GI/Abdominal exam: Present: normal bowel sounds, soft. Absent: distended, tenderness - Extremities Exam Extremities exam: Present: warm. Absent: pedal edema, tenderness - Neurological Exam Neurological exam: Present: alert, CN II-XII intact, oriented X3, no focal deficits Internal Medicine: Result - Labs CBC & Chem 7: 08/13/16 05:40 08/13/16 05:40 Labs: Short CBC 08/13/16 Range/Units 05:40 WBC 11.3 H (4.3-11.1) K/mcL Hgb 10.4 L (12.9-16.9) g/dL Hct 32.3 L (37.5-50.1) % Plt Count 184 (140-400) K/mcL Neutrophils # 8.5 (1.6-8.9) K/mcL BMP 08/13/16 05:40 Sodium 138 Potassium 3.8 Chloride 107 Carbon Dioxide 26 BUN 22 Creatinine 1.02 Glucose 157 H Calcium 9.0 - ABG Interpretation ABG results: PT/INR, D-dimer PT 13.0 Seconds (9.4-12.1) H 08/10/16 22:23 - Impressions Impressions Fluoroscopy 08/13/16 00:00 IMPRESSION: Intraprocedural fluoroscopic spot images as above. See separate procedure report for more information. D/ / Mauro Soria MD / Mauro Soria MD Interpreting Provider: Mauro Soria MD X-Ray 08/13/16 00:00 IMPRESSION: Intraprocedural fluoroscopic spot images as above. See separate procedure report for more information. D/ / Mauro Soria MD / Mauro Soria MD Interpreting Provider: Mauro Soria MD Consult Discharge Plan - Plan [facility]errals: [facility] [Primary Care Provider[facility] - <Wally Murray P - Last Filed: 08/13/16 17:08> Date of Encounter: 08/13/16 - Constitutional Vitals: Temp Pulse Resp BP Pulse Ox 98.3 F 81 16 160/77 96 08/13/16 16:00 08/13/16 16:00 08/13/16 16:11 08/13/16 16:00 08/13/16 16:11 Internal Medicine: Result - Labs CBC & Chem 7: 08/13/16 05:40 08/13/16 05:40 Labs: Short CBC 08/13/16 Range/Units 05:40 WBC 11.3 H (4.3-11.1) K/mcL Hgb 10.4 L (12.9-16.9) g/dL Hct 32.3 L (37.5-50.1) % Plt Count 184 (140-400) K/mcL Neutrophils # 8.5 (1.6-8.9) K/mcL BMP 08/13/16 05:40 Sodium 138 Potassium 3.8 Chloride 107 Carbon Dioxide 26 BUN 22 Creatinine 1.02 Glucose 157 H Calcium 9.0 - ABG Interpretation ABG results: PT/INR, D-dimer PT 13.0 Seconds (9.4-12.1) H 08/10/16 22:23 - Impressions Impressions Fluoroscopy 08/13/16 00:00 IMPRESSION: Intraprocedural fluoroscopic spot images as above. See separate procedure report for more information. D/ / Mauro Soria MD / Mauro Soria MD Interpreting Provider: Mauro Soria MD X-Ray 08/13/16 00:00 IMPRESSION: Intraprocedural fluoroscopic spot images as above. See separate procedure report for more information. D/ / Mauro Soria MD / Mauro Soria MD Interpreting Provider: Mauro Soria MD - Attending Attestation I examined this patient and my medical decision-making was reviewed with the COMPUTER GAME PROGRAMMER/PA/Advanced Practice Nurse/Resident Physician. I agree with the documented findings, disposition and treatment plan as described except to the extent set forth below. cardiology and Urology input appreciated.
[2016-08-13] MEDS: Budesonide/Formoterol 160/4.5 MDI IH SCH ×2 (10:38→22:08)
[2016-08-13] MEDS ORDERED: Isosorbide MONOnitrate (24 HR) 30 MG TAB.ER.24H PO ONE (13:15)
--- NOTE | 2016-08-13 13:16 | Cardiology Consult Note ---
Date of Encounter: 08/13/16 Time of Encounter: 13:15 Assessment and Plan (1) CAD (coronary artery disease) Current Visit: Yes Status: Acute Per Cardiology: Records reviewed from [place] and showed abnormal stress test. Subsequent left heart catheterization April 2016 which showed diffuse left main, diffuse LAD, chronic mid RCA 100% total occlusion with collaterals from the LAD, diffuse circumflex disease. Patient on asa, statin, BB, Imdur, and Ranexa. Appears to have exertional CP unimproved with recent medical therapy. Will increase Imdur to 60mg PO daily, Ranexa 1000mg PO BID, and increase Lopressor 75mg PO BID (SBP 160's - 170's). Will check echo. Awaiting cath films to be reviewed by Dr. Preciado to see if further intervention warranted. Qualifiers: Coronary Disease-Associated Artery/Lesion type: [place] artery [place] vs. transplanted heart: [place] heart Associated angina: without angina Qualified Code(s): I25.10 - Atherosclerotic heart disease of [place] coronary artery without angina pectoris (2) Pneumonia Current Visit: Yes Status: Acute Per Cardiology: Suspected recurrent pneumonia, on antibiotics. Management per primary service. Qualifiers: Pneumonia type: due to unspecified organism Laterality: right Lung location: lower lobe of lung Qualified Code(s): J18.1 - Lobar pneumonia, unspecified organism (3) Renal calculi Current Visit: Yes Status: Acute Per Cardiology: Urology following. S/p stone extraction vs right ureteral stent placement. (4) Urinary tract infection Current Visit: Yes Status: Acute Per Cardiology: On antibiotics. Management per primary and urology service. Qualifiers: Urinary tract infection type: acute cystitis Hematuria presence: without hematuria Qualified Code(s): N30.00 - Acute cystitis without hematuria Discussion w patient/family: The assessment and plan as outlined above was discussed with the patient and/or family members who expressed understanding and agreement. All questions were answered. Thank you for involving us in the care of your patient. Please call with any questions. History of Present Illness Consult date: 08/13/16 Requesting physician: Wally Murray Consult reason: CAD, SOB Chief complaint: SOB History of present illness: Mr. Kan is a 76 year old male with PMH: HLD, HTN, PAD-- known bilateral carotid artery disease 40-59%, COPD, nicotine abuse-- smoked about 1ppd for 53 years, quit 03/2015, and CAD-- cath for abnormal stress test with recs for medical management. Cardiology c/s for SOB and eval for LHC. Patient reports admitted for fever and chills r/t his "kidney stone". He reports recent abnormal stress test and LHC 04/2016 with recs fro medical management. Report no change in symptoms with Ranexa and Imdur. Has exertional CP relieved with rest-- unchanged. Also, having SOB with exertion and now at rest. No CP currently. Denies palps, dizziness, syncope. Denies hx of TIA/CVA. Denies afib, ICD, pacer. Denies any active bleeding or blood loss. Past Med Surg Social Fam HX - Past Medical History Attestation: Yes The following information was validated with the patient. Source: patient, old records reviewed, obtained from family Medical history: CHF, COPD, coronary artery disease, hyperlipidemia, hypertension, myocardial infarction Psychiatric history: no psych history - Social History Smoking Status: Former smoker Smokeless Tobacco Status: No Alcohol use: none Drug use: none Medications and Allergies Acetaminophen [Tylenol] 650 mg PO QAM PRN 08/11/16 [History] Albuterol Neb [Proventil Neb] 2.5 mg IH Q12H 08/11/16 [History] Albuterol Sulfate [Albuterol Inhaler] 2 puff IH Q6HR PRN 08/11/16 [History] Aspirin [Lo-Dose Aspirin EC] 81 mg PO DAILY 08/11/16 [History] Atorvastatin [Lipitor] 40 mg PO HS 08/11/16 [History] Budesonide/Formoterol 160/4.5 [Symbicort 160/4.5] 2 puff IH BIDR 08/11/16 [ History] Cholecalciferol (D-3) [Vitamin D] 1,000 unit PO DAILY 08/11/16 [History] Isosorbide MONOnitrate (24 HR) [Imdur] 30 mg PO DAILY 08/11/16 [History] Metoprolol Tartrate [Lopressor] 50 mg PO BID 08/11/16 [History] Montelukast [Singulair] 10 mg PO DAILY 08/11/16 [History] Nitroglycerin [Nitrostat] 0.4 mg SL AD PRN 08/11/16 [History] Omeprazole [PriLOSEC] 20 mg PO DAILY 08/11/16 [History] Oxygen 2 l NS HS 08/11/16 [History] Ranolazine [Ranexa] 500 mg PO BID 08/11/16 [History] Tamsulosin [Flomax] 0.4 mg PO DAILY 08/11/16 [History] Tiotropium [Spiriva] 1 cap IH DAILY 08/11/16 [History] Vit C/E/Zn/Coppr/Lutein/Zeaxan [Preservision Areds 2 Softgel] 1 cap PO DAILY [History] Zinc Acetate [Galzin] 50 mg PO DAILY 08/11/16 [History] Allergies levofloxacin Adverse Reaction (Verified 08/10/16 23:51) Itching All Systems Review: A 10-system review of systems was performed and is negative for pertinent findings except as documented above in the HPI. - Constitutional Constitutional: chills, fatigue, fever(s) - Cardiovascular Cardiovascular: as per HPI, chest pain with exertion, dyspnea at rest, dyspnea on exertion Physical Examination Vital Signs, Last 4 Hours Pulse Resp BP Pulse Ox 08/13/16 12:18 77 16 161/80 90 08/13/16 11:00 72 16 159/76 2 08/13/16 10:40 18 96 08/13/16 10:00 74 16 160/80 90 08/13/16 09:30 80 16 159/72 96 08/13/16 09:15 73 16 175/88 96 General: Conversant, No Apparent Distress HEENT: Atraumatic, Normocephaly, Mucus Membranes Moist Neck: No JVD, Normal carotid pulses Cardiac: Reg Rate and Rhythm, Normal S1 and S2, No Murmur Lungs: Normal Breath Sounds, Other (few scattered rhonchi) Neuro: Alert and responsive, No focal deficits noted Abdomen: Soft, Non-Tender Skin: No rashes noted on visualized skin Musculoskeletal: No Chest Wall Tenderness Extremities: No Clubbing, No Cyanosis, No Edema, Normal Pulses Results 08/13/16 05:40 08/13/16 05:40 Lab Results Laboratory Tests 08/10/16 08/10/16 08/10/16 22:23 22:23 22:23 INR 1.2 Troponin I 0.01 B-Natriuretic Peptide 78 Ur Leukocyte Esterase Ur Culture Indicated? 08/11/16 05:20 INR Troponin I B-Natriuretic Peptide Ur Leukocyte Esterase Trace H Ur Culture Indicated? YES A ITS Impressions Chest X-Ray 08/10/16 22:19 IMPRESSION: Mild diffuse interstitial prominence, which is nonspecific and may represent COPD. Minimal right basilar opacities, favor atelectasis over consolidation. Otherwise no acute findings. D/ / Bean Ledbetter MD / Bean Ledbetter MD Interpreting Provider: Bean Ledbetter MD Abdomen/Pelvis CT 08/11/16 13:07 IMPRESSION: 1. 4-5 mm obstructing right proximal to mid ureteral calculus resulting in mild hydroureteronephrosis. 2. Bilateral nonobstructing nephrolithiasis. 3. Mild patchy opacities of the right lower lobe base which may represent bronchopneumonia. 4. Indeterminate 1.3 cm left adrenal nodule. With no prior history of cancer this likely represents an adenoma. Consider 12 month follow-up CT abdomen. D/ / 08/11/2016 18:26:18 Rick Eason MD / tan Interpreting Provider: Rick Eason MD Fluoroscopy 08/13/16 00:00 IMPRESSION: Intraprocedural fluoroscopic spot images as above. See separate procedure report for more information. D/ / Mauro Soria MD / Mauro Soria MD Interpreting Provider: Mauro Soria MD X-Ray 08/13/16 00:00 IMPRESSION: Intraprocedural fluoroscopic spot images as above. See separate procedure report for more information. D/ / Mauro Soria MD / Mauro Soria MD Interpreting Provider: Mauro Soria MD Active Medications Acetaminophen (Tylenol) 650 mg PO Q6HR PRN PRN Reason: Mild Pain (1-3); Fever Stop: 02/10/17 04:40 Albuterol Sulfate (Proventil Neb) 2.5 mg IH [id number] PRN; Protocol PRN Reason: Shortness Of Breath/Wheezing Stop: 02/10/17 04:53 Albuterol/Ipratropium (Duoneb) 3 ml IH QIDR [facility] PRN Reason: Protocol Stop: 02/10/17 05:01 Last Admin: 08/13/16 10:38 Dose: 3 ml Aspirin (Aspirin Ec) 81 mg PO DAILY [facility] Stop: 02/10/17 10:01 Atorvastatin Calcium (Lipitor) 40 mg PO HS [facility] Stop: 02/10/17 21:01 Budesonide/Formoterol Fumarate (Symbicort) 2 puff IH BIDR [facility] PRN Reason: Protocol Stop: 02/10/17 10:01 Last Admin: 08/13/16 10:38 Dose: 2 puff Guaifenesin (Mucinex) 600 mg PO BID [facility] Stop: 02/10/17 09:01 Heparin Sodium (Porcine) (Heparin) 5,000 unit SQ Q8HCO [facility] Stop: 02/12/17 14:01 Ciprofloxacin Lactate (Cipro Premix 400 Mg/200 Ml) 400 mg in 200 mls @ 200 mls/ hr IVPB Q12HR [facility] Stop: 02/10/17 18:01 Piperacillin Sod/Tazobactam (Sod 3.375 gm/ Dextrose) 100 mls @ 25 mls/hr IVPB Q8HR [facility] PRN Reason: Protocol Stop: 02/10/17 16:01 Vancomycin HCl 1,500 mg/ (Dextrose) 250 mls @ 166.67 mls/hr IVPB Q12H [facility] Stop: 02/12/17 13:01 Isosorbide Mononitrate (Imdur) 30 mg PO ONCE ONE Stop: 08/13/16 13:16 Isosorbide Mononitrate (Imdur) 60 mg PO DAILY [facility] Stop: 02/13/17 09:01 Lactobacillus Acidophilus/Rhamnosus (Culturelle) 1 each PO BID [facility] Stop: 02/10/17 09:01 Metoprolol Tartrate (Lopressor) 25 mg PO ONCE ONE Stop: 08/13/16 13:13 Metoprolol Tartrate (Lopressor) 75 mg PO BID [facility] Stop: 02/10/17 21:01 Montelukast Sodium (Singulair) 10 mg PO DAILY [facility] Stop: 02/10/17 10:01 Naloxone HCl (Narcan) 0.4 mg IVP Q2MIN PRN PRN Reason: Opioid Reversal Stop: 02/10/17 04:40 Nitroglycerin (Nitroglycerin) 0.4 mg SL AD PRN PRN Reason: Chest Pain Stop: 02/10/17 09:51 Omeprazole (Prilosec) 20 mg PO 0630 [facility] PRN Reason: Protocol Stop: 02/10/17 10:01 Prednisone (Prednisone) 40 mg PO DAILY [facility] Stop: 02/10/17 09:01 Ranolazine (Ranexa) 1,000 mg PO BID [facility] Stop: 02/12/17 21:01 Tamsulosin HCl (Flomax) 0.4 mg PO DAILY [facility] PRN Reason: Protocol Stop: 02/11/17 09:01 Vitamin D (Vitamin D) 1,000 unit PO DAILY [facility] Stop: 02/10/17 10:01 - Imaging and Cardiology Echo: pending Cardiac cath: report reviewed - EKG Interpretation EKG results cardiology: personally reviewed, normal ECG, sinus rhythm, other ( SR 70's 80's on tele) Consult Discharge Plan - Plan [facility]errals: [facility] [Primary Care Provider] -
[2016-08-13] MEDS: *HR* Heparin 5,000 UNIT/ML VIAL SQ SCH ×2 (16:38→23:13)
[2016-08-13] MEDS: Piperacillin/Tazobactam 3.375 GM in D5% in Water (Mini-Bag+) 100 ML IVPB SCH ×2 (16:41→23:14)
[2016-08-13] MEDS: Vancomycin 1,500 MG in D5% in Water 250 ML IVPB SCH (16:43)
[2016-08-13] MEDS: Ranolazine 500 MG TAB.ER.12H PO SCH (20:27)
[2016-08-13] MEDS: Lactobacillus 1 EACH CAP.SPRINK PO SCH (20:28)
[2016-08-13] MEDS ORDERED: Ranolazine 500 MG TAB.ER.12H PO SCH (21:00)
[2016-08-13] MEDS ORDERED: Vancomycin 2,000 MG in D5% in Water 500 ML IVPB SCH (22:00)
[2016-08-14] MEDS: Vancomycin 1,500 MG in D5% in Water 250 ML IVPB SCH (01:55)
[2016-08-14] MEDS: Ipratropium/Albuterol Neb 3 ML IH SCH ×2 (04:13→10:37)
[2016-08-14] MEDS: *HR* Heparin 5,000 UNIT/ML VIAL SQ SCH (06:04)
[2016-08-14 06:25] LABS: Basophils # 0.1 K/mcL (0.0-0.2); Basophils % 0.4 %; Eosinophils # 0.7 K/mcL (0.0-0.6); Eosinophils % 6.2 %; Hematocrit 33.6 % (37.5-50.1); Hemoglobin 10.4 g/dL (12.9-16.9); Lymphocytes # 1.9 K/mcL (0.6-4.6); Mean Corpuscular Volume 90.6 fL (83.0-100.0); Monocytes # 1.1 K/mcL (0.0-1.3); Monocytes % 9.8 %; Neutrophils # 7.2 K/mcL (1.6-8.9); Platelet Count 183 K/mcL (140-400); Red Blood Count 3.71 M/mcL (4.19-5.50); Red Cell Distribution Width 19.1 % (11.5-14.5); Segmented Neutrophils % 64.6 %
[2016-08-14 06:36] LABS: BUN/Creatinine Ratio 20 (6-26); Blood Urea Nitrogen 19 mg/dL (8-26); Calcium 8.8 mg/dL (8.6-10.8); Carbon Dioxide 27 mEq/L (19-29); Chloride 107 mEq/L (98-109); Glucose 131 mg/dL (70-99); Magnesium 1.6 mg/dL (1.6-2.6); Osmolality,Calculated 290 (280-300); Sodium 138 mEq/L (136-145); eGFR For African Americans > 60 (> 60); eGFR For Non-African Americans > 60 (> 60)
[2016-08-14 06:56] VITALS: BP 152/87
[2016-08-14] MEDS: Lactobacillus 1 EACH CAP.SPRINK PO SCH (08:29)
[2016-08-14] MEDS: Piperacillin/Tazobactam 3.375 GM in D5% in Water (Mini-Bag+) 100 ML IVPB SCH (08:29)
[2016-08-14] MEDS: Ranolazine 500 MG TAB.ER.12H PO SCH (08:29)
[2016-08-14] MEDS ORDERED: Cholecalciferol (D-3) 1,000 UNIT TABLET PO SCH (09:00)
[2016-08-14] MEDS ORDERED: predniSONE 20 MG TABLET PO SCH (09:00)
[2016-08-14] MEDS ORDERED: Isosorbide MONOnitrate (24 HR) 30 MG TAB.ER.24H PO SCH ×2 (09:00)
[2016-08-14] MEDS ORDERED: Aspirin Enteric Coated 81 MG Tablet PO SCH (09:00)
--- NOTE | 2016-08-14 09:23 | Cardiology Progress Note ---
Date of Encounter: 08/14/16 Time of Encounter: 09:22 Assessment and Plan (1) CAD (coronary artery disease) Current Visit: Yes Status: Acute Per Cardiology: Records reviewed from [place] and showed abnormal stress test. Subsequent left heart catheterization April 2016 which showed diffuse left main, diffuse LAD, chronic mid RCA 100% total occlusion with collaterals from the LAD, diffuse circumflex disease. Patient on asa, statin, BB, Imdur, and Ranexa. Appears to have exertional CP unimproved with recent medical therapy. Yesterday , increased Imdur to 60mg PO daily, Ranexa 1000mg PO BID, and increased Lopressor 75mg PO BID. Echo shows preserved EF 60%, mild LVDD, mild MR. No significant findings. Discussed with RN, recommend ambulating pt today to see if he has recurrent exertional chest pain since nitrates were increased. Awaiting cath films to be received and reviewed by Dr. Preciado to see if further intervention warranted. Qualifiers: Coronary Disease-Associated Artery/Lesion type: [place] artery [place] vs. transplanted heart: [place] heart Associated angina: without angina Qualified Code(s): I25.10 - Atherosclerotic heart disease of [place] coronary artery without angina pectoris Discussion w patient/family: The assessment and plan as outlined above was discussed with the patient and/or family members who expressed understanding and agreement. All questions were answered. Thank you for involving us in the care of your patient. Please call with any questions. I will discuss all the above with Dr. Brown and make changes as necessary. Subjective Principal diagnosis: Chest pain, CAD Interval history: Pt denies any chest pain overnight, but has not ambulated. No acute complaints. Objective Vital Signs, Last 4 Hours Temp Pulse Resp BP Pulse Ox 08/14/16 08:39 61 17 96 08/14/16 06:55 98.2 F 66 17 152/87 96 Vital Signs Temp Pulse Resp BP Pulse Ox 08/14/16 08:39 61 17 96 08/14/16 06:55 98.2 F 66 17 152/87 96 08/14/16 04:24 16 96 08/14/16 04:13 97.9 F 69 16 150/75 97 08/13/16 23:53 98.8 F 75 16 128/64 94 08/13/16 22:10 20 96 08/13/16 19:16 98.9 F 72 19 137/70 96 08/13/16 16:11 16 96 08/13/16 16:00 98.3 F 81 17 160/77 95 08/13/16 12:18 77 16 161/80 90 08/13/16 11:00 72 16 159/76 2 08/13/16 10:40 18 96 08/13/16 10:00 74 16 160/80 90 08/13/16 09:30 80 16 159/72 96 Intake and Output 08/13/16 08/14/16 08/14/16 23:59 07:59 15:59 Intake Total 350 / 350 750 / 750 Output Total 600 / 600 200 / 200 Balance 350 / 350 150 / 150 -200 / -200 Intake: IV Fluids 350 / 350 750 / 750 Cipro Premix 400 MG/200 400 / 400 ML 400 mg In 200 ml @ 200 mls/hr IVPB Q12HR [facility] Rx #:[id number] Zosyn 3.375 GM In 100 / 100 100 / 100 Dextrose 5% (Minibag+) 100 ML 100 ML @ 25 mls/hr IVPB Q8HR [facility] Rx#: [id number] Vancocin 1,500 MG In 250 / 250 250 / 250 Dextrose 5% 250 ML @ 166. 67 mls/hr IVPB Q12H [facility] Rx#:[id number] Output: Urine 600 / 600 200 / 200 Other: Weight 97.4 kg Patient Weight 08/14/16 23:59 Weight 97.4 kg General: Conversant, No Apparent Distress HEENT: Atraumatic, Normocephaly, Mucus Membranes Moist Neck: No JVD, Normal carotid pulses Cardiac: Reg Rate and Rhythm, Normal S1 and S2, No Murmur Lungs: Other (mild wheezes) Neuro: Alert and responsive, No focal deficits noted Abdomen: Soft, Non-Tender Skin: No rashes noted on visualized skin Musculoskeletal: No Chest Wall Tenderness Extremities: No Clubbing, No Cyanosis, No Edema, Normal Pulses Results 08/14/16 06:00 08/14/16 06:00 Lab Results 08/14/16 08/14/16 06:00 06:00 WBC 11.2 H Hgb 10.4 L Hct 33.6 L Plt Count 183 Sodium 138 Potassium 4.0 Chloride 107 Carbon Dioxide 27 BUN 19 Creatinine 0.96 Glucose 131 H Calcium 8.8 Magnesium 1.6 Consult Discharge Plan - Plan [facility]errals: [facility] [Primary Care Provider] -
[2016-08-14] MEDS: Budesonide/Formoterol 160/4.5 MDI IH SCH (10:37)
--- NOTE | 2016-08-14 13:23 | Discharge Summary ---
<Gerardo Friedman - Last Filed: 08/14/16 13:19> Date of Encounter: 08/14/16 Time of Encounter: 13:19 - Discharge Diagnosis (1) Sepsis Priority: Primary Status: Resolved Qualifiers: Sepsis type: sepsis due to unspecified organism Qualified Code(s): A41.9 - Sepsis, unspecified organism (2) Pneumonia Priority: Primary Status: Suspected Qualifiers: Pneumonia type: due to unspecified organism Laterality: right Lung location: lower lobe of lung Qualified Code(s): J18.1 - Lobar pneumonia, unspecified organism (3) COPD exacerbation Priority: Primary Status: Suspected (4) Renal calculi Priority: Primary Status: Resolved (5) CAD (coronary artery disease) Priority: Secondary Status: Chronic Qualifiers: Coronary Disease-Associated Artery/Lesion type: [place] artery [place] vs. transplanted heart: [place] heart Associated angina: without angina Qualified Code(s): I25.10 - Atherosclerotic heart disease of [place] coronary artery without angina pectoris (6) DVT prophylaxis Priority: Secondary Status: Inactive - Discharge Medications Prescriptions: Ciprofloxacin HCl [Cipro] 500 mg PO DAILY #5 tablet Home Medications: Acetaminophen [Tylenol] 650 mg PO QAM PRN 08/11/16 [History] Albuterol Neb [Proventil Neb] 2.5 mg IH Q12H 08/11/16 [History] Albuterol Sulfate [Albuterol Inhaler] 2 puff IH Q6HR PRN 08/11/16 [History] Aspirin [Lo-Dose Aspirin EC] 81 mg PO DAILY 08/11/16 [History] Atorvastatin [Lipitor] 40 mg PO HS 08/11/16 [History] Budesonide/Formoterol 160/4.5 [Symbicort 160/4.5] 2 puff IH BIDR 08/11/16 [ History] Cholecalciferol (D-3) [Vitamin D] 1,000 unit PO DAILY 08/11/16 [History] Isosorbide MONOnitrate (24 HR) [Imdur] 30 mg PO DAILY 08/11/16 [History] Metoprolol Tartrate [Lopressor] 50 mg PO BID 08/11/16 [History] Montelukast [Singulair] 10 mg PO DAILY 08/11/16 [History] Nitroglycerin [Nitrostat] 0.4 mg SL AD PRN 08/11/16 [History] Omeprazole [PriLOSEC] 20 mg PO DAILY 08/11/16 [History] Oxygen 2 l NS HS 08/11/16 [History] Ranolazine [Ranexa] 500 mg PO BID 08/11/16 [History] Tamsulosin [Flomax] 0.4 mg PO DAILY 08/11/16 [History] Tiotropium [Spiriva] 1 cap IH DAILY 08/11/16 [History] Vit C/E/Zn/Coppr/Lutein/Zeaxan [Preservision Areds 2 Softgel] 1 cap PO DAILY [History] Zinc Acetate [Galzin] 50 mg PO DAILY 08/11/16 [History] Ciprofloxacin HCl [Cipro] 500 mg PO DAILY #5 tablet 08/14/16 [Rx] Allergies/Adverse Reactions: Allergies levofloxacin Adverse Reaction (Verified 08/10/16 23:51) Itching Procedures/tests Complete & Pending: Procedures Performed prior 72 hours Category Date Time Status CT abd pelvis wo no iv no oral [CT] Routine Cat Scan 08/11/16 13:07 Completed EV echocardiogram Routine Y 08/13/16 13:20 Completed Date of admission: 08/11/16 04:39 [facility] care physician: [facility] Consults: 08/13/16 13:20 Consult to Cardiology [CONS] Routine Comment: Consulting Provider: Cardiology Flavia Reason for Consult: Dyspnea/CAD Call Completed: Yes Discharging clinician: Gerardo Friedman Anticipated date of discharge: 08/14/16 - Patient Status Disposition: Home, Self-Care Condition: Good Functional capacity at discharge: independent ambulation Overall status at discharge: patient is progressing back to baseline - Discharge Instructions Instructions: Coronary Artery Disease (DC), Renal Colic (GEN) Follow Up With: [facility] [Primary Care Provider] - 08/21/16 9:45 am Additional Instructions: Please follow-up with your primary care physician. Please follow up with cardiology as scheduled. Please resume your home medications. Please take the antibiotic until completed. Please return for any new or worsening symptoms. - Diet and Activity Activity: increase activity as tolerated Diet: low fat, low cholesterol, low salt diet Interval History: Patient seen and examined at bedside. Patient has no complaints at this time. Patient feels that his breathing is at baseline. Patient denies chest pain and is able to get up and walk around without chest pain. Denies fever, chills, abdominal pain, dysuria. Hospital course: Mr. Kan is a 76 year old male with history of coronary disease, COPD, renal stones presented with shortness of breath and fevers and chills. Patient was initially admitted for pneumonia and COPD exacerbation and patient had multiple admissions in the past year for pneumonia. After discussing this at length with the patient is unclear whether the patient had a true pneumonia as the x-ray findings could have been residual changes from his most recent pneumonia in June. Given the patient's history of kidney stones and possible urinary tract infection on UA a CT scan of the abdomen was performed that revealed a 4-5 mm obstructing renal calculus. Urology was consulted and the patient underwent lithotripsy with stone removal and stent placement. Patient also has a history coronary disease and the most recent catheterization report was obtained from [place] that reveals the patient has a chronic total obstruction. 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 He was not a good candidate for inpatient cath at this time. Patient completed 5 days of by mouth steroids in his respiratory status recovered nicely. Patient will be discharged home to complete a course of 10 days of antibiotics. Patient was discharged stable condition. - Time Spent with Patient Total time spent providing and/or coordinating discharge services: - Constitutional Vitals: Temp Pulse Resp BP Pulse Ox 98.2 F 61 18 152/87 95 08/14/16 06:55 08/14/16 08:39 08/14/16 10:37 08/14/16 06:55 08/14/16 10:37 General appearance: Present: A&O X 3, pleasant, no acute distress - Respiratory Respiratory exam: Present: CTAB. Absent: rales, rhonchi, wheezes - Cardiovascular Cardiovascular exam: Present: RRR. Absent: gallop, rubs, systolic murmur - GI/Abdominal GI/Abdominal exam: Present: normal bowel sounds, soft. Absent: distended, tenderness - Extremities Exam Extremities exam: Present: warm. Absent: pedal edema, tenderness - Neurological Exam Neurological exam: Present: alert, CN II-XII intact, oriented X3, no focal deficits <Terri,Wally P - Last Filed: 08/14/16 17:27> Date of Encounter: 08/14/16 Procedures/tests Complete & Pending: Procedures Performed prior 72 hours Category Date Time Status EV echocardiogram Routine Y 08/13/16 13:20 Completed Date of admission: 08/11/16 04:39 Primary care physician: [facility] Consults: 08/13/16 13:20 Consult to Cardiology [CONS] Routine Comment: Consulting Provider: Cardiology Flavia Reason for Consult: Dyspnea/CAD Call Completed: Yes Hospital course: Mr. Kan is a 76 year old male - Time Spent with Patient Total time spent providing and/or coordinating discharge services: - Constitutional Vitals: Temp Pulse Resp BP Pulse Ox 98.2 F 61 18 152/87 95 08/14/16 06:55 08/14/16 08:39 08/14/16 10:37 08/14/16 06:55 08/14/16 10:37 - Attending Attestation I examined this patient and my medical decision-making was reviewed with the PROJECT RESERVOIR ENGINEER/PA/Advanced Practice Nurse/Resident Physician. I agree with the documented findings, disposition and treatment plan as described except to the extent set forth below.
[2016-08-14] MEDS ORDERED: Aminoglycoside Consult 1 EACH MC ONE (14:16)
--- NOTE | 2016-08-14 15:41 | Urology Progress Note ---
Date of Encounter: 08/14/16 Time of Encounter: 15:40 - Assessment and Plan (1) Urinary tract infection Status: Acute Qualifiers: Urinary tract infection type: acute cystitis Hematuria presence: without hematuria Qualified Code(s): N30.00 - Acute cystitis without hematuria (2) Renal calculi Status: Resolved Assessment and plan: doing well. f/u in 2 weeks for cysto stent removal Progress Note Narrative: Patient seen. doing well. sp right ureteroscopic stone extraction with stent placement. Objective Initial Vital Signs Temp Pulse Resp BP Pulse Ox 100.9 F H 98 16 150/77 90 08/10/16 21:51 08/10/16 21:51 08/10/16 21:51 08/10/16 21:51 08/10/16 21:51 - General physical appearance Present: well developed - Abdomen Present: soft - Labs 08/14/16 06:00 08/14/16 06:00 Diabetes panel 08/14/16 Range/Units 06:00 Sodium 138 (136-145) mEq/L Potassium 4.0 (3.5-4.5) mEq/L Chloride 107 (98-109) mEq/L Carbon Dioxide 27 (19-29) mEq/L BUN 19 (8-26) mg/dL Creatinine 0.96 (0.72-1.25) mg/dL Glucose 131 H (70-99) mg/dL Calcium 8.8 (8.6-10.8) mg/dL Calcium panel 08/14/16 Range/Units 06:00 Calcium 8.8 (8.6-10.8) mg/dL Pituitary panel 08/14/16 Range/Units 06:00 Sodium 138 (136-145) mEq/L Potassium 4.0 (3.5-4.5) mEq/L Chloride 107 (98-109) mEq/L Carbon Dioxide 27 (19-29) mEq/L BUN 19 (8-26) mg/dL Creatinine 0.96 (0.72-1.25) mg/dL Glucose 131 H (70-99) mg/dL Calcium 8.8 (8.6-10.8) mg/dL Adrenal panel 08/14/16 Range/Units 06:00 Sodium 138 (136-145) mEq/L Potassium 4.0 (3.5-4.5) mEq/L Chloride 107 (98-109) mEq/L Carbon Dioxide 27 (19-29) mEq/L BUN 19 (8-26) mg/dL Creatinine 0.96 (0.72-1.25) mg/dL Glucose 131 H (70-99) mg/dL Calcium 8.8 (8.6-10.8) mg/dL Consult Discharge Plan - Plan Instructions: Coronary Artery Disease (DC), Renal Colic (GEN) Additional Instructions: Please follow-up with your primary care physician. Please follow up with cardiology as scheduled. Please resume your home medications. Please take the antibiotic until completed. Please return for any new or worsening symptoms. Referrals: KEAGAN,PCP [Primary Care Provider] - 08/21/16 9:45 am Prescriptions: Ciprofloxacin HCl [Cipro] 500 mg PO DAILY #5 tablet
== END 2016-08-14 14:17 | disposition home or self-care (01) ==
LOC: 2NENU 21:47 → EMEROO 21:47 → 2NENU 08-11 00:34
PROVIDERS: ADMIT Internal Medicine; ATTEND Internal Medicine